=== PATIENT | male | born 1985 | race Hispanic/Latino ===

== ENCOUNTER 2019-10-03 17:34 | Emergency (ER) | payer SELFPAY ==
[~2019-10-03] VITALS: Ht 180.3 cm; Wt 92.6 kg
== END 2019-10-03 20:46 | disposition home or self-care (01) ==
LOC: ED 17:34
DX: J10.1 Influenza due to other identified influenza virus with other respiratory manifestations (principal)
CPT/HCPCS: 87502; 99283